=== PATIENT | female | born 1980 | race American Indian/Alaskan Native ===

== ENCOUNTER 2019-12-19 08:54 | Day surgery (SDC) | payer MEDICAID ==
--- NOTE | 2019-12-18 16:53 | History and Physical Report ---
History of Present Illness Date of examination: 12/17/19 History of present illness: Patient has been reassessed/reevaluated. H&P has been reviewed. No interval changes. Patient desires sterilization. Discussed with various methods of contraceptives including abstinence, barrier and hormonal. Discussed oral, implantable, dermal, injectable,intravaginal and intrauterine methods. Patient declined temporary contraceptives. Discuss the permanency of sterilization. High risk of regret and 0.5 to 1% risk of failure. Questions answered Patient understands and desires to proceed. Vital Signs: Patient Profile: 39 Years Old Female LMP: 12/09/2019 Height: 66 inches Weight: 214 pounds BMI: 34.54 Temp: 98.4 degrees F BP sittin / 80 (left arm) Menstrual History: LMP (date): 12/09/2019 Past History : 7 Term Births: 5 Premature Births: 1 Living Children: 7 Para: 5 Mult. Births: 2 Prev : 0 Aborta: 2 Elect. Ab: 0 Spont. Ab: 2 Ectopics: 0 # 1 Delivery date: 2000 Weeks Gestation: 40 Delivery type: Anesthesia type: epidural Delivery location: [place] Infant Sex: Female weight: 6-8 # 2 Delivery date: 10/2001 Weeks Gestation: ft Delivery type: Anesthesia type: epidural Delivery location: [facility] Infant Sex: Male weight: 7-10 # 3 Delivery date: 08/2004 Weeks Gestation: 40 Delivery type: Anesthesia type: epidural Delivery location: [facility] Sex: girl/girl weight: 7-8/6-8 Comments: Twin Gestation # 4 Delivery date: 01/2015 Weeks Gestation: 39 Delivery type: Anesthesia type: epidural Delivery location: [place] Infant Sex: Male weight: 7-10 # 5 Delivery date: 2018 Delivery type: SAB # 6 Delivery date: 2018 Delivery type: SAB # 7 Delivery date: 10/07/2019 Weeks Gestation: 34 Delivery type: Delivery location: [facility] Comments: Twin Gestation [employer] OPER[employer] History Uterine Surgery (not C/S): negative Operations: Cholecystectomy-2018 Abnormal PAP: positive Uterine Anomaly: negative SIDNEY Exposure: negative Infertility: negative Infection History HIV Risk Eval: no Partner hx. of genital herpes: no Current Allergies (reviewed today): * DILAUDID (Moderate) Past Medical History: Asthma-inhaler as needed Carpal Tunnel Syndrome Depression Headaches(Migraines) Past Surgical History: Cholecystectomy-2018 Family History Summary: Other Family Member - Has No Family History of Colon Cancer - Entered On: 12/18/2019 Other Family Member - Has No Family History of Breast Cancer - Entered On: 12/18/2019 Other Family Member - Has Family History of Ovarian Cancer - Entered On: 12/18/2019 Other Family Member - Has Family History of Hypertension - Entered On: 12/18/2019 Other Family Member - Has Family History of Diabetes - Entered On: 12/18/2019 General Comments - FH: HTN DM Risk Factors: Smoked Tobacco Use: Never smoker Smokeless Tobacco Use: Never Passive smoke exposure: no Drug use: no HIV high-risk behavior: no Caffeine use: 0 drinks per day Alcohol use: no Exercise: no Seatbelt use: 100 % Review of Systems General Denies fever, chills, sweats, anorexia, fatigue, weakness, malaise, weight loss and sleep disorder. Denies vaginal discharge, incontinence, dysuria, hematuria, urinary fr equency, amenorrhea, menorrhagia, abnormal vaginal bleeding, pelvic pain, genital sores, decreased libido, painful periods, painful sex, urinary urgency, hot flashes, vaginal dryness, vaginal itching and vaginal odor. CV Denies chest pains, palpitations, syncope, dyspnea on exertion, orthopnea, PND and peripheral edema. Resp Denies cough, dyspnea at rest, excessive sputum, hemoptysis, wheezing and pleurisy. GI Denies nausea, vomiting, diarrhea, constipation, change in bowel habits, abdominal pain, melena, hematochezia, jaundice, gas/bloating, indigestion/heartburn, dysphagia and odynophagia. Breast Denies left breast lump, right breast lump, nipple discharge, bloody discharge from nipple, breast pain, abnormal mammogram and breast enlargement. Psych Denies depression, anxiety, irritability and mood swings. Medications and Allergies Allergies Allergy/AdvReac Type Severity Reaction Status Date / Time hydromorphone [From Dilaudid] Allergy Hives Verified 12/13/19 12:46 Home Medications Medication Instructions Recorded Confirmed Last Taken Type Vit-Fe Fumar-FA [ 1 tab PO QDAY 12/13/19 12/19/19 12/18/19 09:00 History Vitamin] Active Meds: Active Medications Acetaminophen (Tylenol) 1,000 mg PO PREOP SANDY Stop: 12/19/19 20:00 Gabapentin (Gabapentin) 600 mg PO PREOP NR Stop: 12/19/19 20:00 Lactated Ringer's (Lactated Ringers) 1,000 mls @ 100 mls/hr IV DIRECT SANDY Stop: 12/19/19 23:59 Midazolam HCl (Versed) 2 mg IV PREOP NR Stop: 12/19/19 22:00 Exam - Physical Exam Narrative exam: HEENT: normocephalic, no lesions or deformities Skin no abnormal lesions or rashes Chest: respiratory effort normal, clear to auscultation CV: regular, normal S1-S2, no murmur, no rub, no gallop Abdomen: soft, nontender Neuro: no gross anomalities Extremities: no clubbing, cyanosis, or edema [employer] OPER[employer] Exams Vulva/Vagina: No lesions, normal BUS, normal rugae Cervix: No lesions; no cervical motion tenderness Uterus: normal size and position, midline, mobile Adnexae: no masses or tenderness Rectovaginal: exam defered Assessment and Plan - Patient Problems (1) Encounter for sterilization Current Visit: No Status: Acute Plan to address problem: Patient desires sterilization. Patient declined temporary contraceptives. Discuss the permanency of sterilization. High risk of regret and 0.5 to 1% risk of failure. Discussed possible ovarian cancer prevention benefit of salpingectomy with its increased risks of blood loss vs partial salpingectomy. Questions answered Patient understands and desires to proceed with salpingectomy Discuss the risks of the surgery including infection, bleeding possibly heavy enough to require a blood transfusion, possilble damage to bowel, bladder or ureter. Possiiblity josef laparotomy may be required.to complete the surgery. Patient understands and desires to proceed (2) Migraine headache Current Visit: No Status: Acute (3) H/O: depression Current Visit: No Status: Acute (4) Carpal tunnel syndrome Current Visit: No Status: Acute
[~2019-12-19 08:54] MED LIST: ACETAMINOPHEN 500 MG TAB PO SCH; GABAPENTIN 300 MG CAP PO NR; LACTATED RINGERS 1,000 ML IV SCH; MIDAZOLAM 2 MG/2 ML INJ IV NR
[2019-12-19] MEDS ORDERED: ONDANSETRON 4 MG/2 ML INJ IV PRN (10:25)
[2019-12-19] MEDS ORDERED: fentaNYL 100 MCG/2 ML INJ IV PRN (10:25)
[2019-12-19] MEDS ORDERED: KETOROLAC 30 MG/1 ML INJ IV PRN (10:25)
--- NOTE | 2019-12-19 10:25 | Anesthesia Day of Surgery ---
Anesthesia Day of Surgery - Day of Surgery Patient Examined: Yes Patient H&P Reviewed: Yes Patient is NPO: Yes
--- NOTE | 2019-12-19 10:25 | Anesthesia Consultation ---
Anesthesia Consult and Med Hx Date of service: 12/19/19 - Airway Anesthetic Teeth Evaluation: Good ROM Head & Neck: Adequate Mental/Hyoid Distance: Adequate Mallampati Class: Class II Intubation Access Assessment: Probably Good - Pulmonary Exam CTA: Yes - Cardiac Exam Cardiac Exam: RRR - Pre-Operative Health Status ASA Pre-Surgery Classification: ASA2 Proposed Anesthetic Plan: General - Pulmonary Hx Smoking: No Hx Asthma: Yes (last inhaler use 2wks ago) Hx Respiratory Symptoms: No - Cardiovascular System Hx Hypertension: No Hx Heart Attack/AMI: No Hx Percutaneous Transluminal Coronary Angioplasty (PTCA): No Hx Cardia Arrhythmia: No (hx palpitations 3 mos ago while w/ neg cardiac workup) - Central Nervous System CVA: No - Endocrine Hx Renal Disease: No Hx Liver Disease: No Hx Insulin Dependent Diabetes: No Hx Non-Insulin Dependent Diabetes: No Hx Thyroid Disease: No - Other Systems Hx Obesity: Yes (BMI 34) - Additional Comments Anesthesia Medical History Comments: No hx anesthetic complications.
[2019-12-19] MEDS ORDERED: BUPIVACAINE/PF (0.5%) 5 MG/1 ML 30 ML VIAL INFILTRATI ONE ×3 (11:44→12:48)
[2019-12-19] MEDS ORDERED: LIDOCAINE MPF (2%) 20 MG/1 ML VIAL 5 ML ONE (11:49)
[2019-12-19] MEDS ORDERED: dexAMETHasone 20 MG/5 ML VIAL ONE (11:49)
[2019-12-19] MEDS ORDERED: ONDANSETRON 4 MG/2 ML INJ ONE (11:49)
[2019-12-19] MEDS ORDERED: fentaNYL 100 MCG/2 ML INJ ONE ×3 (11:49→12:48)
[2019-12-19] MEDS ORDERED: NEOSTIGMINE 10MG/10 ML INJ MDV ONE (11:49)
[2019-12-19] MEDS ORDERED: ROCURONIUM 50 MG/5 ML INJ IV ONE (11:49)
[2019-12-19] MEDS ORDERED: GLYCOPYRROLATE 0.4 MG/2 ML INJ ONE (11:49)
[2019-12-19] MEDS ORDERED: PHENYLEPHRINE/NS 1,000 MCG/10 ML SYRINGE (OR USE) IV ONE (11:49)
[2019-12-19] MEDS ORDERED: SUCCINYLCHOLINE CHLORIDE 200 MG/10 ML INJ MDV ONE (11:49)
[2019-12-19] MEDS ORDERED: propofoL 200 MG/20 ML VIAL IV ONE (11:50)
[2019-12-19] MEDS ORDERED: SODIUM CHLORIDE 0.9% 1000 ML IV SOLN IR ONE (12:48)
--- NOTE | 2019-12-19 13:38 | Operative Report ---
Operative Report Operative Report: Date of procedure: December 19, 2019 Pre-operative diagnosis: Patient desires permanent sterilization Post-operative diagnosis: Same Procedure name(s): Laparoscopic bilateral salpingectomy Surgeon: Pranav Angulo MD Data Operations Manager: [] Anesthesia: General endotracheal EBL: Minimal Complications: None Findings: Patient with uterus approximately 8-10 weeks in size with normal fallopian tubes bilaterally Specimen(s): Bilateral fallopian tubes Patient was brought in the operating room. General anesthesia was induced without difficulty. She was placed in dorsal lithotomy position. Prepped and draped in usual sterile manner. Her urinary bladder with was emptied with a red rubber catheter. A sponge stick was placed in her vagina was placed for uterine manipulation. Attention was then switched to the patient's abdomen. An infra-umbilical incision was made with a scalpel. This incision was spread with a hemostat. A 5 mm trocar was placed in this incision while lifting high the abdominal wall. Intra-abdominal presence was verified directly with the laparoscope. The patient was then insufflated to approximately 3 L of CO2 gas. The patient's findings as noted above. An accessory puncture was made suprapubically. The 8 mm trocar was placed through this incision under direct visualization with no evidence of internal organ damage. Each of the fallopian tube were identified by its fimbriated end. Starting with the right fallopian tube approximately 1 to 2 cm from the cornea LigaSure device was used to cross sectional cut the tube. From this point the ligature device was used to cauterize and cut the mesosalpinx until the fimbriated end was reached detaching the tube. The fallopian tube was then removed through the accessory port attention was then switched to the contralateral tube. Same procedure was performed detaching that tube and removed it through the accessory port. The remaining stump was inspected and found to be hemostatic. At this time all instruments were removed. The patient was de-insufflated. The skin incisions were closed subcuticularly with 4-0 Vicryl. Marcaine was injected into the surgical incisions, for postoperative pain relief. The patient tolerated procedure well. She was awakened in the operating room and accompanied to the recovery room in good condition.
--- NOTE | 2019-12-19 13:41 | Short Stay Summary ---
Short Stay Documentation Date of service: 12/19/19 - History H&P: dictated - Allergies and Medications Current Medications: Allergies hydromorphone [From Dilaudid] Allergy (Verified 12/13/19 12:46) Hives Home Medications Medication Instructions Recorded Confirmed Last Taken Type Vit-Fe Fumar-FA [ 1 tab PO QDAY 12/13/19 12/19/19 12/18/19 09:00 History Vitamin] Acetaminophen/Codeine [Tylenol #3] 1 tab PO Q4HR PRN #20 tablet 12/19/19 Unknown Rx Ibuprofen [Motrin] 800 mg PO TID PRN #30 tablet 12/19/19 Unknown Rx Active Medications Acetaminophen (Tylenol) 1,000 mg PO PREOP SANDY Stop: 12/19/19 20:00 Last Admin: 12/19/19 10:00 Dose: 1,000 mg Documented by: Fentanyl (Sublimaze) 50 mcg IV Q5MIN PRN PRN Reason: Pain , Severe (7-10) Stop: 12/19/19 23:00 Gabapentin (Gabapentin) 600 mg PO PREOP NR Stop: 12/19/19 20:00 Last Admin: 12/19/19 10:01 Dose: 600 mg Documented by: Lactated Ringer's (Lactated Ringers) 1,000 mls @ 100 mls/hr IV DIRECT SANDY Stop: 12/19/19 23:59 Last Admin: 12/19/19 09:55 Dose: 100 mls/hr Documented by: Ketorolac Tromethamine (Toradol) 30 mg IV ONCE PRN PRN Reason: Pain, Moderate (4-6) Stop: 12/19/19 16:00 Midazolam HCl (Versed) 2 mg IV PREOP NR Stop: 12/19/19 22:00 Last Admin: 12/19/19 10:09 Dose: 2 mg Documented by: Ondansetron HCl (Zofran) 4 mg IV ONCE PRN PRN Reason: Nausea And Vomiting Stop: 12/19/19 20:00 - Physical exam General appearance: no acute distress HEENT: Atraumatic Lungs: Normal air movement Breasts: deferred Heart: Regular rate Gastrointestinal: tenderness (Consistent with postop), distended (Consistent with laparoscopic surgery) Female Genitourinary: deferred Rectal Exam: deferred - Brief post op/procedure progress note Date of procedure: 12/19/19 (See dictated operative note for details) - Hospital course Hospital course: Patient was admitted underwent the above him procedure without any complications. Patient will be discharged with follow-up in office in 1-2 weeks for postop check. - Disposition Condition at discharge: Good Disposition: DC-01 TO HOME OR SELFCARE - Discharge Diagnoses (1) Encounter for sterilization Status: Acute (2) Migraine headache Status: Acute Qualifiers: Migraine type: unspecified (3) H/O: depression Status: Chronic (4) Carpal tunnel syndrome Status: Chronic Qualifiers: Laterality: unspecified laterality Qualified Code(s): G56.00 - Carpal tunnel syndrome, unspecified upper limb Short Stay Discharge Plan Activity: advance as tolerated Diet: regular Wound: open to air Additional Instructions: Patient office for fever, chills, nausea, vomiting or pain uncontrolled by pain medication. Follow up with: NOBLE PINEDO MD [Primary Care Provider] - 7 Days Prescriptions: Ibuprofen [Motrin] 800 mg PO TID PRN #30 tablet PRN Reason: Pain Acetaminophen/Codeine [Tylenol #3] 1 tab PO Q4HR PRN #20 tablet PRN Reason: Pain
[2019-12-19 14:22] VITALS: BP 132/76
--- NOTE | 2019-12-19 15:10 | Post Anesthesia Evaluation ---
- Post Anesthesia Evaluation Patient Participated: Yes Airway Patent: Yes Stable Respiratory Function: Yes Nausea/Vomiting: No Temp > 96.8F: Yes Pain Manageable: Yes Adequeate Hydration: Yes Anesthesia Complications: No
== END 2019-12-19 14:53 | disposition home or self-care (01) ==
LOC: OR 08:54
PROVIDERS: ATTEND Obstetrics & Gynecology
DX: Z30.2 Encounter for sterilization (principal); G43.909 Migraine, unspecified, not intractable, without status migrainosus; G56.00 Carpal tunnel syndrome, unspecified upper limb; M19.90 Unspecified osteoarthritis, unspecified site; E66.9 Obesity, unspecified; Z79.899 Other long term (current) drug therapy; Z86.59 Personal history of other mental and behavioral disorders; Z90.49 Acquired absence of other specified parts of digestive tract; Z72.89 Other problems related to lifestyle; Z98.890 Other specified postprocedural states; Z68.34 Body mass index [BMI] 34.0-34.9, adult; Z88.8 Allergy status to other drugs, medicaments and biological substances
CPT/HCPCS: 58670; 81025; 88302; J0330; J1100; J1885; J2250; J2370; J2405; J2704; J2710; J3010; J7030; J7120